=== PATIENT | female | born 1950 | race Caucasian/White ===

== ENCOUNTER 2024-06-03 15:11 | Emergency (ER) | payer MEDICARE, SELFPAY ==
--- NOTE | ~2024-06-03 | XR_ITS ---
EXAMINATION: XR HAND, RIGHT CLINICAL INFORMATION: Swelling in right hand. COMPARISON: None available. TECHNIQUE: Three views of the right hand. FINDINGS: There is osteopenia. No acute fracture or dislocation. No focal bone lesion or abnormal periosteal reaction. There are degenerative changes of the hand and wrist. Narrowing of the DIP joints with marginal bone spurs of the second through fifth digits. Similar marked degenerative change at the IP joint of the thumb. Minimal degenerative change of the PIP joints of the second, third and fourth digit. Mild joint narrowing of the PIP joint of the little finger with small marginal bone spur. There is joint narrowing and marginal bone spurs of the second and third metacarpal phalangeal joint without bone erosion. Marked joint narrowing, subchondral sclerosis and marginal bone spurs of the first metacarpal carpal joint. Marked joint narrowing and subchondral osteosclerosis of the bone involving the joint between the navicular and the multangular bones of the wrist. There is faint chondrocalcinosis of the TFCC of the radiocarpal joint without bone erosion. XR/XR hand RT min 3V IMPRESSION: 1. No acute abnormality. 2. Osteopenia. 3. Degenerative changes of the hand and wrist. Electronically signed by: William Flores MD 06/03/2024 04:54 PM EDT
--- NOTE | 2024-06-03 15:38 | ED_ITS ---
HPI - General Adult General Chief complaint: General Medical Stated complaint: ?Infected R index finger Time Seen by Provider: 06/03/24 16:25 Source: patient Mode of arrival: ambulatory Limitations: no limitations History of Present Illness ED Provider: Benny Bhatia PA-C HPI narrative: Abigail is a pleasant 74 year old female with a past medical history of hyperlipidemia as well as hypothyroidism who presents to the ED today with right index finger pain and swelling x 6 weeks. She notes that this all started in early-mid April, without any inciting events. She presented to an urgent care where they did x-rays, revealing no acute pathology, and then diagnosed her with a paronychia and prescribed keflex. Her symptoms persisted and she returned, where they changed her antibiotic regimen from Keflex to Doxycycline, presumably for MRSA coverage. The patient's symptoms persisted further, and she presented to an ED, where they diagnosed her with a possible gout, subsequently prescribing her Colchicine. She notes that none of these treatment regimens seemed to help her finger pain and swelling, and it has been fairly constant over the past 6 weeks. Of note, she states she tried some topical mupirocin ointment as well, noting that this actually worsened her symptoms. She denies any associated fever or chills. She does, however note that she cannot move her DIP joint on her right index finger. She denies any inciting factors / traumas including injury, manicure, hang nails, etc.. complaint: right index finger pain, swelling, redness Onset (ago): week(s) (6) Location: upper extremity (right index finger) Radiation: non-radiation Pain Consistency: constant Relieving factors: none Associated symptoms: denies other symptoms Treatments prior to arrival: other (Keflex, Doxycycline, Colchicine, Mupirocin) Related Data Previous Rx's ?Medication ?Instructions ?Recorded cephalexin 500 mg capsule 500 mg PO Q6H 7 days #28 caps 06/03/24 doxycycline hyclate 100 mg tablet 100 mg PO BID #14 tabs 06/03/24 Allergies Allergy/AdvReac Type Severity Reaction Status Date / Time No Known Allergies Allergy Verified 06/03/24 15:41 Review of Systems 2 Review of Systems: Yes all other systems are reviewed and are negative Constitutional: Constitutional: Reports no additional constitutional complaints Integumentary/Breasts: Skin/Breast: Reports system reviewed and no additional complaints, except as docu Hematologic/Lymphatic: Hematologic/Lymphatic: Reports no additional hematologic/lymphatic complaints Allergic/Immunologic: Allergic/Immunologic: Reports no additional allergic/immunologic complaints [facility] Social History Social History Advance Directives: Yes Advance Directives Information Provided: No Advance Directives on File: No Do you have a plan to hurt others: No Plan Physical Exam ED Vital Signs: Vital Signs - 24 hr 06/03/24 15:39 06/03/24 16:00 06/03/24 17:46 Temperature 98.2 F 98.0 F 98.0 F Pulse Rate 89 77 77 Respiratory Rate 18 18 18 Blood Pressure 133/80 136/79 136/79 Pulse Oximetry 95 99 99 Oxygen Delivery Method Room Air Room Air Room Air BMI result Body Mass Index 25.4 Appearance: pleasant, cooperative with exam, awake, alert, and in no acute distress Head: normocephalic, atraumatic. Eyes: EOMI CVS: Normal heart rate and rhythm. Pulses normal. Respiratory: No respiratory distress, regular work of breathing without accessory muscle use. Skin: distal third of right index finger markedly edematous and erythematous, with mild fluctuance, and without any excretion of pus or fluid. DIP joint of right index finger unable to move secondary to swelling. Skin is otherwise warm, dry, and intact throughout. Extremities: No lower extremity edema. Neuro/psych: Oriented X 3. No motor deficit. No sensory deficit. Normal speech and cognition. Course Course Course Narrative: This is an RME done by [employer]: Additional HPI, ROS, PE not included below will be deferred to primary provider. 74 year old female presenting with concerns of R index finger swelling and erythema x 6 weeks. Patient was previously treated at urgent care with mupriocin, cholchicine and doxycycline two months ago without resolution. Plan - imaging, labs Appearance: Alert.? Oriented X3.? No acute cardiopulmonary distress distress.? Head: Normocephalic, atraumatic, no step-offs or deformities. CVS: Pulses normal.? Respiratory: No respiratory distress.? Abdomen: Soft and nontender.? Skin: ? Normal skin color. Extremities: 5/5 strength to bilateral upper and lower extremities; + right index finger swelling and erythema Back: No midline tenderness, no C-spine tenderness, full range of motion, No CVA tenderness bilaterally Neuro: Oriented X 3.? No motor deficit.? No sensory deficit. Medications Administered Discontinued Medications Generic Name Dose Route Start Last Admin Trade Name Kamar PRN Reason Stop Dose Admin Lidocaine HCl 2 ml 06/03/24 17:00 06/03/24 17:03 Lidocaine Hcl 1 % Mpf 2 Ml Vial INFILTRATI 06/03/24 17:01 2 ml ONCE ONE Administration Lidocaine HCl 2 ml 06/03/24 17:00 06/03/24 17:03 Lidocaine Hcl 1 % Mpf 2 Ml Vial INFILTRATI 06/03/24 17:01 2 ml ONCE ONE Administration Procedures Abscess I/D Site: hand (right index finger) Side (if applicable): right Local Anesthetic: lidocaine 2% Amount of anesthesia used (mL): 4 Technique: incised with blade Sent for culture/gram staining?: No Irrigation: No Packing used?: none Medical Decision Making Medical Decision Making [facility] Narrative: Abigail is a pleasant 74 year old female with a past medical history of hyperlipidemia as well as hypothyroidism who presents to the ED today with right index finger pain and swelling x 6 weeks. She notes that this all started in early-mid April, without any inciting events. She presented to an urgent care where they did x-rays, revealing no acute pathology, and then diagnosed her with a paronychia and prescribed keflex. Her symptoms persisted and she returned, where they changed her antibiotic regimen from Keflex to Doxycycline, presumably for MRSA coverage. The patient's symptoms persisted further, and she presented to an ED, where they diagnosed her with a possible gout, subsequently prescribing her Colchicine. She notes that none of these treatment regimens seemed to help her finger pain and swelling, and it has been fairly constant over the past 6 weeks. Of note, she states she tried some topical mupirocin ointment as well, noting that this actually worsened her symptoms. She denies any associated fever or chills. She does, however note that she cannot move her DIP joint on her right index finger. She denies any inciting factors / traumas including injury, manicure, hang nails, etc.. A repeat XR of the right hand was obtained today and revealed degenerative changes without any acute pathology. CBC revealed no evidence of leukocytosis and patient remains afebrile. At this time, the most likely diagnosis is a now chronic paronychia. Due to the duration and nature of her symptoms as well as mild fluctuance on exam, an incision and drainage was discussed and agreed upon with the patient to see if any pus would be able to be expressed. Other differentials considered were an arthritic flare, septic arthritis, gout, and pseudogout (CPPD). It is unlikely that this is a simple flare of arthritis as the patient's symptoms have been constant and persistent for around 6 weeks and have been resistant to treatment with NSAIDs. Low clinical suspicion for septic arthritis at this time as patient has no evidence of leukocytosis, physical exam revealed relatively mild tenderness to palpation, and patient has failed several rounds of antibiotic treatment. Gout remains on the differential list at this time, as patient's uric acid level is elevated today at 6.9 (normal 2.4-5.7), though it would be unlikely as the patient had no improvement with colchicine. Pseudogout (CPPD) also remains on the differential at this time, though again would be unlikely to have no improvement with colchicine. Additionally, the patient does not have any risk factors for gout or pseudogout such as diuretic use, heavy seafood diet, or excessive alcohol intake. Patient is stable for discharge with double coverage oral antibiotics, referral to hand specialist and PCP. Return precautions discussed. Patient agree with plan Differential Diagnosis Differential Diagnoses: The differential diagnosis associated with the presentation includes Paronychia, arthritic flare, septic arthritis, gout, tenosynovitis and pseudogout (CPPD) Admission/Observation Consideration of admission/observation: Escalation of care including admission/observation considered Lab Data MDM Lab Attestation statement: I reviewed the patient's lab results. No leukocytosis 06/03/24 16:02 06/03/24 16:02 Labs: Lab Results 06/03/24 Range/Units 16:02 WBC 7.4 (4.8-10.8) X10*3/uL RBC 4.40 (4.20-5.50) X10*6/uL Hgb 13.9 (12.0-16.0) g/dl Hct 38.9 (37.0-47.0) % MCV 88.4 (80.0-98.0) fL MCH 31.6 (27.0-33.0) pg MCHC 35.7 H (31.0-35.0) g/dl RDW 13.2 (11.0-16.0) % Plt Count 202 (160-400) X10*3/uL MPV 10.5 (9.4-12.3) fL Immature Gran % (Auto) 0.3 (0.0-0.4) % Neut % (Auto) 55.7 (45-73) % Lymph % (Auto) 30.9 (20-40) % Elmore % (Auto) 10.6 (2-11) % Eos % (Auto) 2.0 (0-4) % Baso % (Auto) 0.5 (0-2) % Lymph # (Auto) 2.3 (1.2-4.9) X10*3/uL Elmore # (Auto) 0.8 (0.1-1.2) X10*3/uL Eos # (Auto) 0.2 (0.0-0.4) X10*3/uL Baso # (Auto) 0.0 (0.0-0.2) X10*3/uL Abs Immat Gran (auto) 0.02 (0.00-0.03) X10*3/uL Absolute Neuts (auto) 4.1 (2.0-8.3) x10*3/uL Absolute Nucleated RBC 0.000 (0.0-0.012) X10*3/uL Nucleated RBC % (auto) 0.0 (0.0-0.2) /100WBC ESR 16 (0-20) MM/HR Sodium 140 (135-145) mmol/L Potassium 3.6 (3.3-5.1) mmol/L Chloride 109 H (96-108) mmol/L Carbon Dioxide 20 L (22-29) mmol/L Anion Gap 15 (12-20) BUN 11 (9-16) mg/dL Creatinine 0.89 (0.5-1.4) mg/dL Estim Creat Clear Calc 43.2 Estimated GFR > 60 Random Glucose 154 H (60-115) mg/dL Uric Acid 6.9 H (2.4-5.7) mg/dL Calcium 9.7 (8.4-10.2) mg/dL Total Bilirubin 0.3 (0.0-1.0) mg/dL AST 23 (5-31) U/L ALT 23 (0-31) U/L Alkaline Phosphatase 101 (39-117) U/L C-Reactive Protein 0.43 (< or = 0.50) mg/dL Total Protein 8.2 H (6.5-8.0) g/dL Albumin 4.1 (3.5-5.0) g/dL Independent Interpretation I performed an independent interpretation of an: Plain X-Ray Interpretation: No acute fracture, no obvious bony erosions Radiology Impression Discussion of test interpretation with radiology: I have reviewed the radiologist's reading. Radiologist Impression: EXAMINATION: XR HAND, RIGHT CLINICAL INFORMATION: Swelling in right hand. COMPARISON: None available. TECHNIQUE: Three views of the right hand. FINDINGS: There is osteopenia. No acute fracture or dislocation. No focal bone lesion or abnormal periosteal reaction. There are degenerative changes of the hand and wrist. Narrowing of the DIP joints with marginal bone spurs of the second through fifth digits. Similar marked degenerative change at the IP joint of the thumb. Minimal degenerative change of the PIP joints of the second, third and fourth digit. Mild joint narrowing of the PIP joint of the little finger with small marginal bone spur. There is joint narrowing and marginal bone spurs of the second and third metacarpal phalangeal joint without bone erosion. Marked joint narrowing, subchondral sclerosis and marginal bone spurs of the first metacarpal carpal joint. Marked joint narrowing and subchondral osteosclerosis of the bone involving the joint between the navicular and the multangular bones of the wrist. There is faint chondrocalcinosis of the TFCC of the radiocarpal joint without bone erosion. XR/XR hand RT min 3V IMPRESSION: 1. No acute abnormality. 2. Osteopenia. 3. Degenerative changes of the hand and wrist. External Record Review External record reviewed: Office record, Outpatient record and Prior outpatient labs Prescription Management I considered prescription management with: Pain Medication and Antibiotic Critical Care Time Critical Care Time Critical Care Time: No Discharge Plan Discharge Clinical Impression: Paronychia of finger Patient Disposition: Home, Self-Care Instructions: Paronychia (ED) Additional Instructions: Take the prescribed antibiotics as directed, complete the entire course and do not miss any doses Continue soaks with warm soapy water 2-3 times per day. Recommend following up with the hand specialist, call for an appointment. Follow-up with your doctor. If you develop new or worsening symptoms call 911 or come back to the ER for further evaluation. Prescriptions: New cephalexin 500 mg capsule 500 mg PO Q6H 7 Days Qty: 28 0RF doxycycline hyclate 100 mg tablet 100 mg PO BID Qty: 14 0RF Referrals: [facility] [Provider Group] (Dr. marie for right index finger infection) Joe Flores MD [Primary Care Provider] - Interventions: ED Discharge Assessment Last Done: 06/03/24 17:46 Discharge Date/Time: 06/03/24 17:47 Print Language: Citizen Of [place]
[2024-06-03 15:39] VITALS: BP 133/80; PULSE 89; RESP 18; TEMP 36.8; O2SAT 95; BMI 25.4
[2024-06-03 16:00] VITALS: BP 136/79; PULSE 77; RESP 18; TEMP 36.7; O2SAT 99
[2024-06-03 16:07] LABS: MANUAL DIFF FLAG NO
[2024-06-03 16:08] LABS: Basophils Percent Auto 0.5 % (0-2); Eosinophils Absolute Auto 0.2 X10*3/uL (0.0-0.4); Hematocrit 38.9 % (37.0-47.0); Hemoglobin 13.9 g/dl (12.0-16.0); Imm Gran Abs Auto 0.02 X10*3/uL (0.00-0.03); Imm Gran Pct Auto 0.3 % (0.0-0.4); Lymphocytes Absolute Auto 2.3 X10*3/uL (1.2-4.9); Lymphocytes Percent Auto 30.9 % (20-40); Mean Corpuscular HGB Conc 35.7 g/dl (31.0-35.0); Mean Corpuscular Hemoglobin 31.6 pg (27.0-33.0); Mean Corpuscular Volume 88.4 fL (80.0-98.0); Mean Platelet Volume 10.5 fL (9.4-12.3); Monocytes Absolute Auto 0.8 X10*3/uL (0.1-1.2); Monocytes Percent Auto 10.6 % (2-11); Neutrophils Absolute Auto 4.1 x10*3/uL (2.0-8.3); Neutrophils Percent Auto 55.7 % (45-73); Platelet Count 202 X10*3/uL (160-400); Red Cell Distribution Width 13.2 % (11.0-16.0); White Blood Count 7.4 X10*3/uL (4.8-10.8)
[2024-06-03 16:37] LABS: Uric Acid 6.9 mg/dL (2.4-5.7)
[2024-06-03 16:43] LABS: Alanine Aminotransferase 23 U/L (0-31); Albumin Level 4.1 g/dL (3.5-5.0); Alkaline Phosphatase 101 U/L (39-117); Anion Gap 15 (12-20); Aspartate Amino Transferase 23 U/L (5-31); Bilirubin Total 0.3 mg/dL (0.0-1.0); Blood Urea Nitrogen 11 mg/dL (9-16); C Reactive Protein 0.43 mg/dL (< or = 0.50); Calcium 9.7 mg/dL (8.4-10.2); Carbon Dioxide 20 mmol/L (22-29); Chloride 109 mmol/L (96-108); Creatinine Clr Calc Pharmacy 43.2; Estimated Glomerular Filt Rate > 60; Glucose Random 154 mg/dL (60-115); Potassium 3.6 mmol/L (3.3-5.1); Sodium 140 mmol/L (135-145); Total Protein 8.2 g/dL (6.5-8.0)
[2024-06-03 16:55] LABS: Erythrocyte Sedimentation Rate 16 MM/HR (0-20)
[2024-06-03] MEDS: Lidocaine HCl 1 % MPF 2 ML VIAL INFILTRATI ×2 (17:03)
[2024-06-03 17:46] VITALS: BP 136/79; PULSE 77; RESP 18; TEMP 36.7; O2SAT 99
== END 2024-06-03 17:47 | disposition home or self-care (01) ==
PROVIDERS: Physician Assistant; Emergency Provider Emergency Medicine; PCP Pediatrics
DX: L03.011 Cellulitis of right finger (principal); M79.641 Pain in right hand; Z79.899 Other long term (current) drug therapy
CPT/HCPCS: 10060; 36415; 73130; 80053; 84550; 85025; 85652; 86140; 99283; 99284

== ENCOUNTER 2024-06-11 09:51 | Outpatient (AMB) | payer MEDICARE, SELFPAY ==
[2024-06-11 10:12] VITALS: BMI 25.4
--- NOTE | 2024-06-11 10:12 | MHC.OFFVIS ---
Vital Signs 06/11/24 10:12 Height 5 ft Weight 130 lb BMI 25.4 Intake Visit Reasons: DATABASE REPORT WRITER, Paronychia of R index finger Intake Note: Abigail is a 74 yo right hand dominant female who presents today as a new patient after presenting to the ED for a right index finger paronychia that has been present for about 6 weeks. Patient reports she was seen at an urgent care but they could not figure out what was wrong, so she went [place] [facility] [place], where they drained the paronychia. She is currently taking Doxycycline and cephalexin, prescribed by [facility]. Patient denies any pain or numbness but does experience on and off tingling. Denies any injuries. Patient states she just woke up with her right index finger swollen. Allergies mupirocin [From Bactroban] Adverse Reaction (Verified 06/11/24 10:14) Rash HPI HPI DATABASE REPORT WRITER, Paronychia of R index finger: Details: Abigail is a 74 year old right hand dominant woman who presents for a chronic right index finger paronychia, etiology unclear. She says this began sometime ~early-mid April. She found no improvement from PO Keflex, PO Doxy, and developed a rash from Mupirocin. She was seen in the ED on 06/03/24 where her finger was drained and she was placed on a combined course of PO Keflex & Doxycycline. She denies any pus drainage during her I&D, she says there was just blood. She denies any pain in her fingertip, and says her swelling and pain has improved since the I and D and new course of antibiotics. She is happy she no longer has any throbbing pain in her fingertip. She says in April she just woke up with new swelling in her index finger, she was concerned for an insect bite but she denies any injuries. She also reports some intermittent tingling in her fingertip, but denies any numbness. She has completed her course of Abx. She has a hx of hand OA, Osteopenia, & Gout. [facility] Social History (Updated 06/11/24 @ 10:15 by SHAKIRA Mendoza) Current occupation: rt handed Review of Systems Const All systems reviewed & are unremarkable except as noted in HPI and below Physical Exam Vital Signs: BMI result Body Mass Index 25.4 Const General: cooperative, healthy appearing and no acute distress Orientation/consciousness: patient oriented x3 HEENT Head: Yes normocephalic and Yes atraumatic Eyes EOM: EOMs intact bilaterally Resp Effort & Inspection: normal respiratory effort and able to speak in complete sentences Cardio Jugular venous distension: no JVD Skin General skin exam: turgor normal Rashes: no rashes Neuro General: patient oriented x3 Extrem Other: Evaluation of Right Upper Extremity: The patient is alert, oriented, and in no acute distress Neuro: Median, Ulnar, Radial nerves motor and sensory intact and sensation is normal to the tips of all digits Vascular: Cap refill brisk ROM: She can make a fist and extend all her digits Mild stiffness in the index finger PIP joint Skin: No lacerations or abrasions. General: No Ecchymosis Mild swelling & erythema about the index figner DIP joint, extending distally to the Eponychial fold No drainage Mild tenderness Some skin wrinkling starting (which suggests improvement in swelling) Radiographs: 3 views of the right hand & wrist from 06/03/24 were reviewed by me today in clinic. They show no fractures or dislocations. She has some STT joint & basal joint arthritis. She has severe arthritis in the 2nd & 3rd MCP joints, as well as arthritic changes in all DIP joints. No evidence of Osteomyelitis seen in the index finger. Psych Appearance: grossly normal Affect: normal affect Attitude: cooperative Assessment & Plan Assessment & Plan (1) Paronychia of right index finger: Code(s): L03.011 - Cellulitis of right finger Category: Medical (2) Osteoarthritis of right hand: Code(s): M19.041 - Primary osteoarthritis, right hand Category: Medical (3) Arthritis of carpometacarpal (CMC) joint of right thumb: Code(s): M18.11 - Unilateral primary osteoarthritis of first carpometacarpal joint, right hand Category: Medical Plan Assessment & Plan: 1. Right index finger chronic Paronychia, S/P I&D Onset: ~04/16/24 Date of Procedure: 06/03/24 in ED. Patient reports no pus from I&D, and that there was just bleeding I educated her about this condition I discussed operative and non-operative treatment options I recommend we continue to manage this conservatively While she had no drainage or purulent discharge during her I&D, she does report an improvement in her pain & swelling, which she is happy about I ordered a new 14-day course of PO Augmentin & Doxycycline, which will bring her down to 4 tablets per day total I discussed activity modification, she should work on ROM exercises at home She will continue to soak her fingertip in warm saltwater 1-2x daily She will follow up next week to see how she is doing 2. Right hand osteoarthritis In multiple DIP joints & 2nd & 3rd MCP joints 3. 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 Medications: New amoxicillin-pot clavulanate 875-125 mg 1 tab PO Q12H 20 tabs 0RF doxycycline hyclate 100 mg PO BID 20 tabs 0RF Coding Level of Care Code New Pt Level 4 (09717) Diagnoses Paronychia of right index finger L03.011 Osteoarthritis of right hand M19.041 Arthritis of carpometacarpal (CMC) joint of right thumb M18.11
== END 2024-06-11 10:52 | disposition home or self-care (01) ==
PROVIDERS: PCP Pediatrics; Visit Provider Orthopaedic Surgery
DX: L03.011 Cellulitis of right finger (principal); M19.041 Primary osteoarthritis, right hand; M18.11 Unilateral primary osteoarthritis of first carpometacarpal joint, right hand
CPT/HCPCS: 99203

== ENCOUNTER → 2024-06-11 09:51 | Outpatient (BNVA) | payer MEDICARE, SELFPAY | PROVIDERS: PCP Pediatrics; Visit Provider Orthopaedic Surgery | DX: L03.011 Cellulitis of right finger (principal); M19.041 Primary osteoarthritis, right hand; M18.11 Unilateral primary osteoarthritis of first carpometacarpal joint, right hand | CPT/HCPCS: 99202 ==

== ENCOUNTER 2024-06-18 09:13 | Outpatient (AMB) | payer MEDICARE, SELFPAY ==
[2024-06-18 09:33] VITALS: BMI 25.4
--- NOTE | 2024-06-18 09:33 | MHC.OFFVIS ---
Vital Signs 06/18/24 09:33 Height 5 ft Weight 130 lb BMI 25.4 Intake Visit Reasons: OV- wound check Paronychia of R index finger Intake Note: Abigail is a 74 yo right hand dominant female who presents today for a wound check a paronychia to the right index. Patient reports she continues to take antibiotics however she feels she has not improved much. She denies numbness or tingling. Denies discharge. Allergies mupirocin [From Bactroban] Adverse Reaction (Verified 06/11/24 10:14) Rash HPI HPI OV- wound check Paronychia of R index finger: Details: The patient is a 74-year-old [id number] woman who is following up for a chronic right index finger paronychia infection. The etiology is unclear, but this began sometime in early to mid April of 2023. She is also status post an I and D in the ED on 06/03/2024, where they then placed her on a combination of p.o. Keflex and doxycycline. I 1st saw her on 06/11/2024, found that she was improving and continued her antibiotics ( p.o. doxycycline, changing to p.o. Augmentin from Keflex to decrease her number of pills) doing so for an additional 10 days. She says that she feels like slowly but surely she seems to be improving. She is seeing less swelling, and has less pain. She is just surprised that it has taken so long for this to get better. Of note, she had been treated with p.o. Keflex, and with doxycycline separately on different occasions since this began in April. She seems to be doing better following the I and D with the combination of to antibiotics. [facility] Social History (Updated 06/11/24 @ 10:15 by SHAKIRA Mendoza) Current occupation: rt handed Physical Exam Vital Signs: BMI result Body Mass Index 25.4 Extrem Other: The patient was alert oriented and in no acute distress. Regarding her right index finger there is still some mild hyperemia distal to the PIP joint, but were now seeing wrinkling of the skin with the decreased swelling. She is also less tender to palpation. I and D site at the eponychial fold appears to be healing well and is closed with no drainage. Her stiffness is somewhat better as she was instructed last time to work on range of motion exercises. She can now bring all of the fingers including her index finger close to a fist and back into full extension. Radiographs: Three views of the right hand and wrist from 06/03/2024 were again reviewed by me in clinic. Again they show no fractures or dislocations though she does have significant arthritis including at the D IP joint of the index finger which is most relevant. No osteomyelitis seen at that time. Assessment & Plan Assessment & Plan (1) Paronychia of right index finger: Code(s): L03.011 - Cellulitis of right finger Category: Medical (2) Osteoarthritis of right hand: Code(s): M19.041 - Primary osteoarthritis, right hand Category: Medical Plan Assessment and plan: 1. Right index finger chronic Paronychia, S/P I&D Onset: ~04/16/24 Date of Procedure: 06/03/24 in ED. Patient reports no pus from I&D, and that there was just bleeding I educated her about this condition She appears to be improving and says she has about 6 days left of her antibiotic course. On her visit with me on 06/11/2024 I ordered a 14-day course of PO Augmentin & Doxycycline, which brought her down to 4 tablets per day total She will continue to work on range of motion exercises at home. If all is going well we will see her back in 4 weeks with new radiographs. She knows to contact us sooner if she is concerned that she is developing a recurrence or worsening of the infection. If that happens, I might consider a referral to Dr. Ansari with Infectious Disease for possible longer-term management She is happy with the current plan 2. Right hand osteoarthritis In multiple DIP joints & 2nd & 3rd MCP joints 3. Right basal joint osteoarthritis 4. Right STT joint osteoarthritis No complaints today Coding Level of Care Code Est Pt Level 3 (28965) Diagnoses Paronychia of right index finger L03.011 Osteoarthritis of right hand M19.041
== END 2024-06-18 10:19 | disposition home or self-care (01) ==
PROVIDERS: PCP Pediatrics; Visit Provider Orthopaedic Surgery
DX: L03.011 Cellulitis of right finger (principal); M19.041 Primary osteoarthritis, right hand
CPT/HCPCS: 99213

== ENCOUNTER → 2024-06-18 09:13 | Outpatient (BNVA) | payer MEDICARE, SELFPAY | PROVIDERS: PCP Pediatrics; Visit Provider Orthopaedic Surgery | DX: L03.011 Cellulitis of right finger (principal); M19.041 Primary osteoarthritis, right hand; Z79.2 Long term (current) use of antibiotics | CPT/HCPCS: 99212 ==

== ENCOUNTER 2024-06-30 11:40 | Outpatient (AMB) | payer MEDICARE, SELFPAY ==
--- NOTE | 2024-06-30 11:42 | A.OFFVIS_ITS ---
Vital Signs 3 06/30/24 11:49 Height 5 ft Weight 134 lb BMI 26.2 Pulse 73 Pulse Source Pulse Oximeter Temp 98.0 F Temp Source Oral Pulse Oximetry (%) 98 Oxygen Delivery Method Room Air Intake Visit Reasons: cellulitis right finger Allergies mupirocin [From Bactroban] Adverse Reaction (Verified 06/30/24 11:42) Rash HPI HPI cellulitis right finger: Details: She has had redness and swelling right index finger since April. She is right handed. She had XRay originally and was negative. She took NSAIDS in case arthritis and no better. She was started on Keflex and Doxcycline for 7 days on 06/03 and didnt improve. She never had purulence or drainage. She had attempt at aspiration and negative except blood. She has left foot swelling as well Uric acid is elevated at 6.9. SHe has no fever or chills. She had been started on Augmentin instead of Keflex and Doxycycline 100 mg bid on 06/11 and finished 10 days and then not better and just restarted again on same antibiotics but doesnt want to take due to some GI discomfort due to antibiotics. She has hyperlipidemia and hypothyroid. [facility] Social History Current occupation: rt handed Review of Systems Const All systems reviewed & are unremarkable except as noted in HPI and below Physical Exam Vital Signs: Last Vital Signs Temp 98.0 F 06/30/24 11:49 Pulse 73 06/30/24 11:49 Pulse Ox 98 06/30/24 11:49 Oxygen Delivery Method Room Air 06/30/24 11:49 BMI result Body Mass Index 26.2 Const Other: General: cooperative Orientation/consciousness: patient oriented x3 HEENT Other: Head: Yes normal to inspection Mouth: Normal oral and palatal mucosa present Eyes General: appearance normal, both eyes and all related structures Pupils: Equal, round and reactive pupils present Resp Effort & Inspection: normal respiratory effort Cardio Rate: regular rate Rhythm: regular rhythm GI Palpation (GI): Soft to palpation and nontender General: Yes no CVA tenderness Back/Spine/Pelvis Back: no CVA tenderness Skin General skin exam: no rashes or lesions noted Neuro General: patient oriented x3 Cranial nerves: Yes CN's II-XII intact bilaterally and Yes Equal, round and reactive pupils present Extrem Other: swollen finger and foot Psych Appearance: grossly normal Assessment & Plan Assessment & Plan (1) Arthritis of carpometacarpal (CMC) joint of right thumb: Comment: She has probable arthritis. She has no fever or chills or any drainage or signs of osteomyelitis. Code(s): M18.11 - Unilateral primary osteoarthritis of first carpometacarpal joint, right hand Category: Medical Plan: No further antibiotics at this time. Work up for gout and inflammatory arthritis. If no improvement consider MRI finger look for infection. (2) Osteoarthritis of right hand: Code(s): M19.041 - Primary osteoarthritis, right hand Category: Medical Plan: na Coding Level of Care Code New Pt Level 3 (93373) Diagnoses Arthritis of carpometacarpal (CMC) joint of right thumb M18.11 Osteoarthritis of right hand M19.041
[2024-06-30 11:49] VITALS: PULSE 73; TEMP 36.7; O2SAT 98; BMI 26.2
== END 2024-06-30 14:03 | disposition home or self-care (01) ==
LOC: HO.HID 11:40
PROVIDERS: PCP Pediatrics; Visit Provider Internal Medicine
DX: M18.11 Unilateral primary osteoarthritis of first carpometacarpal joint, right hand (principal); M19.041 Primary osteoarthritis, right hand
CPT/HCPCS: 99203

== ENCOUNTER → 2024-06-30 11:40 | Outpatient (BNVA) | payer MEDICARE, SELFPAY | PROVIDERS: PCP Pediatrics; Visit Provider Internal Medicine | DX: M18.11 Unilateral primary osteoarthritis of first carpometacarpal joint, right hand (principal); M19.041 Primary osteoarthritis, right hand | CPT/HCPCS: 99202 ==